=== PATIENT | female | born 1990 | race Caucasian/White ===

== ENCOUNTER 2019-03-11 00:35 | Emergency (ER) | payer MEDICAID ==
[~2019-03-11] VITALS: Ht 167.6 cm; Wt 100.0 kg
[2019-03-11 04:20] VITALS: BP 125/74
[2019-03-11] MEDS ORDERED: ONDANSETRON 4MG ODT PO ONE (04:30)
== END 2019-03-11 04:40 | disposition left against medical advice (07) ==
LOC: ER 00:35
DX: O21.9 Vomiting of pregnancy, unspecified (principal); O99.511 Diseases of the respiratory system complicating pregnancy, first trimester; R05 Cough; R09.81 Nasal congestion; J34.89 Other specified disorders of nose and nasal sinuses; O26.891 Other specified pregnancy related conditions, first trimester; R51 Headache; M79.10 Myalgia, unspecified site; Z3A.11 11 weeks gestation of pregnancy
CPT/HCPCS: 99281